=== PATIENT | female | born 1970 | race Caucasian/White ===

== ENCOUNTER 2017-04-01 03:37 | Emergency (ER) | payer BC ==
[2017-04-01] MEDS ORDERED: Ketorolac 60 MG/2 ML SDV IM ONE (03:56)
--- NOTE | 2017-04-01 04:02 | EDM.PDOC ---
ED HPI GENERAL MEDICAL PROBLEM - General Chief Complaint: Upper Extremity Injury/Pain Stated Complaint: RIGHT SHOULDER PAIN Time Seen by Provider: 04/01/17 03:48 - History of Present Illness INITIAL COMMENTS - FREE TEXT/NARRATIVE: HISTORY AND PHYSICAL: History of present illness: The patient is a 46-year-old female who presents with gradual onset of right shoulder pain that started like a muscle in her deltoid area was sore like she had gotten an immunization this discomfort started yesterday and gradually increased through the day into the evening. She has had no trauma to the area and is right-hand dominant. She has no neurosensory changes in her hand initially but as she has not been moving it very much due to the pain she is having more tingling. She has no distal humerus elbow forearm wrist or hand bony pain and has no bony shoulder pain either. She says that the pain is mostly in the muscle and she feels like she cannot move it normally. She has no head neck or back pain no chest pain or shortness of breath no abdominal pain nausea or vomiting and no other systemic complaints. The patient is not taking any medications even [id number] meds for this discomfort. she says that when she will this morning it seemed to be worse if she came for evaluation. Please note that the patient denies that the arm is weak she said that is just painful to move it which is why she can't move it. Patient says that she is perimenopausal and is not . Again please note that the patient says the pain came on gradually and there was no sudden event that triggered it. She says she has never had an injury to her shoulder past either Review of systems: As per history of present illness and below otherwise all systems reviewed and negative. Past medical history: As per history of present illness and as reviewed below otherwise noncontributory. Surgical history: As per history of present illness and as reviewed below otherwise noncontributory. Social history: No reported history of drug or alcohol abuse. Family history: As per history of present illness and as reviewed below otherwise noncontributory. Physical exam: General: Well-developed well-nourished female who is nontoxic and vital signs have been reviewed by me. HEENT: Atraumatic, normocephalic, pupils reactive, negative for conjunctival pallor or scleral icterus, mucous membranes moist, throat clear, neck supple, nontender, trachea midline. there are no midline step-offs tenderness defects of the cervical spine Lungs: Clear to auscultation, breath sounds equal bilaterally, chest nontender. Heart: S1S2, regular rate and rhythm no overt murmurs Abdomen: Soft, nondistended, nontender. NABS Pelvis: Stable nontender. Genitourinary: Deferred. Rectal: Deferred. Extremities: Atraumatic with no bony deformities throughout the extremities including the right upper extremity. There is no gross acromioclavicular step- off noted and on palpation there is no soft tissue swelling or erythema at the shoulder joint and no trigger point tenderness. The deltoid is soft and there is no discrete tenderness when I palpate there. Distally the humerus elbow forearm wrist and hand are intact without tenderness or deformities and all the compartments of the right upper extremity are intact and not swollen. The patient cannot actively or passively completely touch the other shoulder she is able to range of motion close to it but only passively. , the legs are negative for cords or calf pain. Neurovascular unremarkable. Neuro: Awake, alert, oriented. Cranial nerves II through XII unremarkable. Cerebellum unremarkable. Motor and sensory unremarkable throughout. Exam nonfocal. Diagnostics: *Right shoulder XR Therapeutics: Toradol [place], sling After the x-rays were reviewed I did discuss these results with the patient and at bedside. I did perform a crossover adduction test and the patient complained of pain at the AC joint. She insists that the pain is not distally but sits right at the anterior shoulder area. I have discussed with her that even though she did not suffer a discrete injury it appears that his area needs to be evaluated by our orthopedics specialist and she has seen Dr. Sung in the past for her knee. I will give her a sling some [place] and diclofenac for home and have advised her to call the clinic this morning at 8 AM to get an emergent follow-up. Impression: Right shoulder pain , rule out AC joint pain/injury Definitive disposition and diagnosis as appropriate pending reevaluation and review of above. right upper arm (deltoid area) Pain Score (Numeric/FACES): 7 - Related Data Allergies Allergy/AdvReac Type Severity Reaction Status Date / Time No Known Allergies Allergy Verified 04/01/17 03:50 Home Meds: Home Meds . [No Known Home Meds] 04/01/17 [History] Social & Family History - Tobacco Use Smoking Status *Q: Former Smoker - Alcohol Use Days Per Week of Alcohol Use: 1 Number of Drinks Per Day: 1 Total Drinks Per Week: 1 - Recreational Drug Use Recreational Drug Use: No Drug Use in Last 12 Months: No Review of Systems - Review of Systems Review Of Systems: ROS reveals no pertinent complaints other than HPI. ED EXAM, GENERAL - Physical Exam Exam: See Below (See dictation) Course - Vital Signs Last Recorded V/S: Last Vital Signs Temp 36.4 C 04/01/17 03:42 Pulse 72 04/01/17 03:42 Resp 18 04/01/17 03:42 BP 104/59 L 04/01/17 03:42 Pulse Ox 100 04/01/17 03:42 - Orders/Labs/Meds Orders: Active Orders 24 hr Category Date Time Status Shoulder Comp Rt [CR] Stat Exams 04/01/17 03:56 Taken Acetaminophen/HYDROcodone [[place] 325-7.5 MG] Med 04/01/17 04:38 Once 1 tab PO ONETIME ONE DME for Discharge [COMM] Stat Oth 04/01/17 04:38 Ordered Meds: Medications Discontinued Medications Generic Name Dose Route Start Last Admin Trade Name Freq PRN Reason Stop Dose Admin Ketorolac Tromethamine 60 mg 04/01/17 03:56 04/01/17 04:03 Toradol IM 04/01/17 03:57 60 mg ONETIME ONE Administration Departure - Departure Time of Disposition: 04:40 Disposition: Home, Self-Care 01 Condition: Good Clinical Impression: Shoulder pain, right Qualifiers: Chronicity: acute Qualified Code(s): M25.511 - Pain in right shoulder Acromioclavicular pain Qualifiers: Laterality: right Qualified Code(s): M25.511 - Pain in right shoulder - Discharge Information Referrals: Luke Tavares MD [Primary Care Provider] - Forms: ED Department Discharge Additional Instructions: The following information is given to patients seen in the emergency department who are being discharged to home. This information is to outline your options for follow-up care. We provide all patients seen in our emergency department with a follow-up referral. The need for follow-up, as well as the timing and circumstances, are variable depending upon the specifics of your emergency department visit. If you don't have a primary care physician on staff, we will provide you with a referral. We always advise you to contact your personal physician following an emergency department visit to inform them of the circumstance of the visit and for follow-up with them and/or the need for any referrals to a consulting specialist. The emergency department will also refer you to a specialist when appropriate. This referral assures that you have the opportunity for followup care with a specialist. All of these measure are taken in an effort to provide you with optimal care, which includes your followup. Under all circumstances we always encourage you to contact your private physician who remains a resource for coordinating your care. When calling for followup care, please make the office aware that this follow-up is from your recent emergency room visit. If for any reason you are refused follow-up, please contact the [facility] emergency department at and ask to speak to the emergency department charge nurse. [facility]--[place] [address] Please call the orthopedics clinic first thing this morning at 8 AM to schedule an expedited ER follow-up as we discussed. Use ice on the joint area for inflammation and take medications as prescribed to the [facility], diclofenac and [place]. Wear sling to rest the shoulder area of please range of motion the distal arm at the elbow wrist and hand. Return to ER as needed and as discussed. - My Orders Last 24 Hours: My Active Orders 04/01/17 03:56 Shoulder Comp Rt [CR] Stat 04/01/17 04:38 Acetaminophen/HYDROcodone [[place] 325-7.5 MG] 1 tab PO ONETIME ONE DME for Discharge [COMM] Stat - Assessment/Plan Last 24 Hours: My Active Orders 04/01/17 03:56 Shoulder Comp Rt [CR] Stat 04/01/17 04:38 Acetaminophen/HYDROcodone [[place] 325-7.5 MG] 1 tab PO ONETIME ONE DME for Discharge [COMM] Stat
[2017-04-01] MEDS ORDERED: Acetaminophen/HYDROcodone 325-7.5 MG Tab PO ONE (04:38)
--- NOTE | 2017-04-01 10:11 | CR ---
EXAM DATE: 04/01/17 PATIENT'S AGE: 46 Patient: DARRYL CERVANTES Facility: [place], [place] Site . Site : 1970 Study: XRay Shoulder Right [id number]/13/2018 4:26:31 AM Ordering Physician: Leroy Carbajal Final Report: INDICATION: Right shoulder pain TECHNIQUE: Shoulder radiograph 3 views right COMPARISON: None FINDINGS: Bones: No acute fractures or aggressive bone lesions are identified. Joints: The glenohumeral is unremarkable. The acromioclavicular joint is unremarkable. Soft tissues: Unremarkable. The visualized hemithorax is unremarkable in appearance. No radiopaque foreign bodies are seen. IMPRESSION: 1. No acute osseous injuries or abnormalities are noted. Dictated by: José Miguel Solis MD @ 04/01/2017 04:28:01 (Electronic Signature) Report Signed by Proxy. DEBORA
== END 2017-04-01 04:55 | disposition home or self-care (01) ==
LOC: MW.ED 03:37
DX: M25.511 Pain in right shoulder (principal); Z87.891 Personal history of nicotine dependence
CPT/HCPCS: 73030; 96372; 99283; A4566; A9270; J1885

== ENCOUNTER 2017-07-22 12:33 | Emergency (ER) | payer BC ==
[2017-07-22] MEDS ORDERED: Ketorolac 60 MG/2 ML SDV IM ONE (13:17)
--- NOTE | 2017-07-22 13:25 | EDM.PDOC ---
ED HPI GENERAL MEDICAL PROBLEM - General Chief Complaint: Lower Extremity Injury/Pain Stated Complaint: LOW BACK/HIP/LEG PAIN Time Seen by Provider: 07/22/17 13:05 - History of Present Illness INITIAL COMMENTS - FREE TEXT/NARRATIVE: HISTORY AND PHYSICAL: History of present illness: Patient is a 46-year-old white female presents with concern of one week of low back and left buttock pain with radiation down her left leg she saw a chiropractor 2 with no significant improvement she denies trauma denies any weaknesses been no incontinence or retention bowel or bladder and no other concern she denies any history of cancer chronic medical problems Review of systems: As per history of present illness and below otherwise all systems reviewed and negative. Past medical history: As per history of present illness and as reviewed below otherwise noncontributory. Surgical history: As per history of present illness and as reviewed below otherwise noncontributory. Social history: No reported history of drug or alcohol abuse. Family history: As per history of present illness and as reviewed below otherwise noncontributory. Physical exam: HEENT: Atraumatic, normocephalic, pupils reactive, negative for conjunctival pallor or scleral icterus, mucous membranes moist, throat clear, neck supple, nontender, trachea midline. Lungs: Clear to auscultation, breath sounds equal bilaterally, chest nontender. Heart: S1S2, regular, negative for clicks, rubs, or JVD. Abdomen: Soft, nondistended, nontender. Negative for masses or hepatosplenomegaly. Negative for costovertebral tenderness. Pelvis: Stable nontender. Genitourinary: Deferred. Rectal: Deferred. Extremities: Atraumatic, negative for cords or calf pain. Neurovascular unremarkable. Neuro: Awake, alert, oriented. Cranial nerves II through XII unremarkable. Cerebellum unremarkable. Motor and sensory unremarkable throughout. Exam nonfocal. Back: Patient has no vertebral body point tenderness she has tenderness over left sciatic notch she is able to stand on her toes back on her heels motor sensory and deep tendon reflexes are normal Diagnostics: [place] x-ray lumbar spine/pelvis Therapeutics: Toradol 60 mg IM hydrocodone 5 mg by mouth Impression: #1 back pain #2 sciatic Definitive disposition and diagnosis as appropriate pending reevaluation and review of above. right hip Pain Score (Numeric/FACES): 9 - Related Data Allergies Allergy/AdvReac Type Severity Reaction Status Date / Time No Known Allergies Allergy Verified 07/22/17 12:43 Home Meds: Home Meds . 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 ED EXAM, GENERAL - Physical Exam Exam: See Below (See dictation) Course - Vital Signs Last Recorded V/S: Last Vital Signs Temp 36.8 C 07/22/17 12:43 Pulse 82 07/22/17 12:43 Resp 18 07/22/17 12:43 BP 141/88 H 07/22/17 12:43 Pulse Ox 100 07/22/17 12:43 - Orders/Labs/Meds Orders: Active Orders 24 hr Category Date Time Status HCG QUALITATIVE,URINE [URCHEM] Stat Lab 07/22/17 13:30 Ordered UA W/MICROSCOPIC [URIN] Stat Lab 07/22/17 13:30 Ordered Labs: Laboratory Tests 07/22/17 07/22/17 Range/Units 13:30 13:30 Urine Color YELLOW Urine Appearance CLEAR Urine pH 6.5 (5.0-8.0) Ur Specific [place] 1.020 (1.001-1.035) Urine Protein NEGATIVE (NEGATIVE) mg/dL Urine Glucose (UA) NEGATIVE (NEGATIVE) mg/dL Urine Ketones 40 H (NEGATIVE) mg/dL Urine Occult Blood NEGATIVE (NEGATIVE) Urine Nitrite NEGATIVE (NEGATIVE) Urine Bilirubin SMALL H (NEGATIVE) Urine Ictotest NEGATIVE Urine Urobilinogen 1.0 (<2.0) EU/dL Ur Leukocyte Esterase NEGATIVE (NEGATIVE) Urine RBC 0-1 (0-2/HPF) Urine WBC 0-1 (0-5/HPF) Ur Epithelial Cells MANY (NONE-FEW) Urine Bacteria RARE (NEGATIVE) Urine HCG, Qual NEGATIVE (NEGATIVE) Meds: Medications Discontinued Medications Generic Name Dose Route Start Last Admin Trade Name Freq PRN Reason Stop Dose Admin Hydrocodone Bitart/Acetaminophen 1 tab 07/22/17 13:45 07/22/17 13:50 [place] 325-5 Mg PO 07/22/17 13:46 1 tab ONETIME ONE Administration Ketorolac Tromethamine 60 mg 07/22/17 13:17 07/22/17 13:30 Toradol IM 07/22/17 13:18 60 mg ONETIME ONE Administration Departure - Departure Time of Disposition: 14:23 Disposition: Home, Self-Care 01 Condition: Good Clinical Impression: Back pain, Sciatica - Discharge Information Referrals: Luke Tavares MD [Primary Care Provider] - Forms: ED Department Discharge Additional Instructions: The following information is given to patients seen in the emergency department who are being discharged to home. This information is to outline your options for follow-up care. We provide all patients seen in our emergency department with a follow-up referral. The need for follow-up, as well as the timing and circumstances, are variable depending upon the specifics of your emergency department visit. If you don't have a primary care physician on staff, we will provide you with a referral. We always advise you to contact your personal physician following an emergency department visit to inform them of the circumstance of the visit and for follow-up with them and/or the need for any referrals to a consulting specialist. The emergency department will also refer you to a specialist when appropriate. This referral assures that you have the opportunity for followup care with a specialist. All of these measure are taken in an effort to provide you with optimal care, which includes your followup. Under all circumstances we always encourage you to contact your private physician who remains a resource for coordinating your care. When calling for followup care, please make the office aware that this follow-up is from your recent emergency room visit. If for any reason you are refused follow-up, please contact the [facility] emergency department at and asked to speak to the emergency department charge nurse. Hydrocodone Medrol as prescribed follow-up primary medical doctor call to schedule appointment return as needed as discussed - My Orders Last 24 Hours: My Active Orders 07/22/17 13:30 HCG QUALITATIVE,URINE [URCHEM] Stat UA W/MICROSCOPIC [URIN] Stat - Assessment/Plan Last 24 Hours: My Active Orders 07/22/17 13:30 HCG QUALITATIVE,URINE [URCHEM] Stat UA W/MICROSCOPIC [URIN] Stat
[2017-07-22] MEDS ORDERED: Acetaminophen/HYDROcodone 325-5 MG Tab PO ONE (13:45)
--- NOTE | 2017-07-22 14:09 | CR ---
AP pelvis Clinical history: Pain Comparison: None Findings: There is an IUD in situ. The greater and lesser pelvic rings are intact and hip joints are symmetric. SI joints are unremarkable. There is a moderate amount of stool in the rectosigmoid colon. Impression: IUD in situ. No bony abnormalities.
--- NOTE | 2017-07-22 14:11 | CR ---
Three-view lumbar spine Clinical history: Back pain Comparison: None. Findings: Vertebral bodies are of normal stature. Pedicles are intact. There is degenerative disc dis ease with loss of stature at L3-4 L4-5 and L5-S1 levels. There is no spondylolysis or spondylolisthes is. Impression: Lower lumbar spine degenerative arthropathy without acute findings. Incidental note is ma de of an IUD in situ
== END 2017-07-22 14:45 | disposition home or self-care (01) ==
LOC: MW.ED 12:33
DX: M54.42 Lumbago with sciatica, left side (principal)
CPT/HCPCS: 72100; 72170; 81001; 81025; 96372; 99283; A9270; J1885

== ENCOUNTER 2017-08-12 12:43 | Day surgery (SDC) | payer BC ==
[~2017-08-12 12:43] MED LIST: Betamethasone Acetate/Betamethasone Sod Phosphate 30 MG/5 ML MDV ONE; Iopamidol 408 MG/ML 50 ML SDV ONE; Lidocaine 2% 5 ML SDV ONE; Ropivacaine 0.5% 5 MG/ML 30 ML SDV ONE
--- NOTE | 2017-08-12 17:31 | OR ---
SURGEON: Dasha Douglass D.O. DATE OF PROCEDURE: 08/12/2017 OR STAFF PRESENT: 1. Clarita Geiger RN. 2. Clarita Barros RN. 3. RT Domenic. WOUND CLASSIFICATION: I. PREOPERATIVE DIAGNOSES: 1. Lumbar degenerative disk disease. 2. L4-L5 and L5-S1 herniated disks. 3. Lumbar radiculopathy. POSTOPERATIVE DIAGNOSES: 1. Lumbar degenerative disk disease. 2. L4-L5 and L5-S1 herniated disks. 3. Lumbar radiculopathy. PROCEDURES PERFORMED: 1. Caudal epidural steroid injection. 2. Fluoroscopic guidance for needle placement. 3. Local with oral valium for sedation. SCREENING QUESTIONS: The patient answered "no" to all of the following questions: 1. Are you allergic to latex? 2. Do you have a bleeding disorder? 3. Do you have any current local or systemic infections? 4. Are you taking any anti-inflammatories or blood thinners? 5. Do you have any joint replacements, heart valve replacements, or a pacemaker? DESCRIPTION OF PROCEDURE: The patient had the procedure thoroughly explained including all possible risks, benefits and alternatives. Consent was signed in my clinic indicating understanding and willingness to proceed. The patient presented to [facility] and was escorted to the dressing room to disrobe and change into a hospital gown. Preoperative vital signs were taken and stable. The patient reported that Valium was taken prior to the procedure. The patient was brought back to the procedure room and placed in the prone position on the procedure room table. A pillow was placed under the hips in order to flatten the lumbar lordosis. The back was prepped with ChloraPrep and sterilely draped. All personnel in the operating room were dressed in appropriate attire including surgical scrubs, head and shoe covers. This was to ensure sterility while in the treatment room. During the time fluoroscopy was in use, all personnel in the operating room wore lead castro with thyroid collars. Sterile technique was used throughout the procedure. The patient was awake and conversant throughout the procedure. There was no evidence of infection at the site of needle insertion. Skeletal landmarks were identified under fluoroscopy for the lumbar epidural. Skin was anesthetized with 2% lidocaine with a sterile 27-gauge 1.5 inch needle. Then, a 20-gauge Tuohy epidural needle was placed in the epidural space with loss of resistance technique under fluoroscopic guidance. No heme, cerebrospinal fluid, or paresthesias were noted. Isovue-200 contrast dye was injected in 0.2 cubic centimeter increments and seen to outline the epidural space in both AP and lateral views. There was no intravascular flow pattern observed under live fluoroscopy. Then, 12 milligrams of Celestone was slowly injected after negative aspiration. The patient tolerated the procedure well. Vital signs were stable during and after the procedure. The staff escorted the patient to the recovery area and the patient was released in stable condition after a brief stay in the recovery room monitored by the nurse. The patient was given both oral and written discharge and follow up instructions with recommendation to follow up given for 2-3 weeks. The patient voiced understanding including understanding of those signs and symptoms that would require emergency care. The patient knows how to contact the office if there are any additional problems or questions in the meantime. PREOPERATIVE PAIN: 7/10 POSTOPERATIVE PAIN: 02/26 FOLLOWUP: Follow up in the Pain Clinic in 3 weeks. PREET / AG /[id number]
== END 2017-08-12 15:05 | disposition home or self-care (01) ==
LOC: MW.SDS 12:43
PROVIDERS: ATTEND Anesthesiology
DX: M51.16 Intervertebral disc disorders with radiculopathy, lumbar region (principal); M51.17 Intervertebral disc disorders with radiculopathy, lumbosacral region; E66.9 Obesity, unspecified; F41.8 Other specified anxiety disorders; Z87.891 Personal history of nicotine dependence
CPT/HCPCS: 62323; J0702; J2795; Q9966

== ENCOUNTER 2018-02-24 10:41 | Day surgery (SDC) | payer BC ==
[2018-02-24] MEDS ORDERED: Lidocaine 1% 0 ML ONE (12:03)
[2018-02-24] MEDS ORDERED: Iopamidol 408 MG/ML 50 ML SDV ONE (12:04)
[2018-02-24] MEDS ORDERED: Ropivacaine 0.5% 5 MG/ML 30 ML SDV ONE (12:04)
[2018-02-24] MEDS ORDERED: Betamethasone Acetate/Betamethasone Sod Phosphate 30 MG/5 ML MDV ONE (12:04)
[2018-02-24] MEDS ORDERED: Lidocaine 2% 5 ML SDV ONE (12:04)
--- NOTE | 2018-02-24 21:20 | OR ---
SURGEON: Dasha Douglass D.O. DATE OF PROCEDURE: 02/24/2018 OR STAFF PRESENT: 1. Dandre Chen RN. 2. Anibal Montanez RN. 3. Mellissa Edmonds RN. 4. RT Ofelia. WOUND CLASS: I. PREOPERATIVE DIAGNOSES: 1. Lumbar degenerative disk disease, L3-L4, L4-L5, L5-S1. 2. Chronic low back pain. 3. Lumbar radiculopathy. 4. Lumbar facet syndrome. POSTOPERATIVE DIAGNOSES: 1. Lumbar degenerative disk disease, L3-L4, L4-L5, L5-S1. 2. Chronic low back pain. 3. Lumbar radiculopathy. 4. Lumbar facet syndrome. PROCEDURE PERFORMED: 1. Caudal epidural steroid injection. 2. Fluoroscopic guidance for needle placement. 3. Local with oral valium for sedation. SCREENING QUESTIONS: The patient answered "no" to all of the following questions: 1. Are you allergic to latex? 2. Do you have a bleeding disorder? 3. Do you have any current local or systemic infections? 4. Are you taking any anti-inflammatories or blood thinners? 5. Do you have any joint replacements, heart valve replacements, or a pacemaker? DESCRIPTION OF PROCEDURE: The patient had the procedure thoroughly explained including all possible risks, benefits and alternatives. Consent was signed in my clinic indicating understanding and willingness to proceed. The patient presented to [facility] and was escorted to the dressing room to disrobe and change into a hospital gown. Preoperative vital signs were taken and stable. The patient reported that Valium was taken prior to the procedure. The patient was brought back to the procedure room and placed in the prone position on the procedure room table. A pillow was placed under the hips in order to flatten the lumbar lordosis. The back was prepped with ChloraPrep and sterilely draped. All personnel in the operating room were dressed in appropriate attire including surgical scrubs, head and shoe covers. This was to ensure sterility while in the treatment room. During the time fluoroscopy was in use, all personnel in the operating room wore lead castro with thyroid collars. Sterile technique was used throughout the procedure. The patient was awake and conversant throughout the procedure. There was no evidence of infection at the site of needle insertion. Skeletal landmarks were identified under fluoroscopy for the caudal epidural. Skin was anesthetized with 2% lidocaine with a sterile 27-gauge 1.5 inch needle. Then a 20-gauge Tuohy epidural needle was placed in the epidural space with loss of resistance technique under fluoroscopic guidance. No heme, cerebrospinal fluid, or paresthesias were noted. Isovue-200 contrast dye was injected in 0.2 cubic centimeter increments and seen to outline the epidural space in both AP and lateral views. There was no intravascular flow pattern observed under live fluoroscopy. Then 12 milligrams of Celestone was slowly injected after negative aspiration. The patient tolerated the procedure well. Vital signs were stable during and after the procedure. The staff escorted the patient to the recovery area and the patient was released in stable condition after a brief stay in the recovery room monitored by the nurse. The patient was given both oral and written discharge and follow up instructions with recommendation to follow up given for 2-3 weeks. The patient voiced understanding including understanding of those signs and symptoms that would require emergency care. The patient knows how to contact the office if there are any additional problems or questions in the meantime. PREOPERATIVE PAIN: 7/10. POSTOPERATIVE PAIN: 0/10. FOLLOWUP: Follow up in Pain Clinic in 3 weeks. PREET / AG /[id number] DEBORA
== END 2018-02-24 13:48 | disposition home or self-care (01) ==
LOC: MW.SDS 10:41
PROVIDERS: ATTEND Anesthesiology
DX: G89.29 Other chronic pain (principal); M51.17 Intervertebral disc disorders with radiculopathy, lumbosacral region; M53.86 Other specified dorsopathies, lumbar region; M47.26 Other spondylosis with radiculopathy, lumbar region; M79.18 Myalgia, other site; M48.061 Spinal stenosis, lumbar region without neurogenic claudication; E66.9 Obesity, unspecified; Z87.891 Personal history of nicotine dependence
CPT/HCPCS: 62323; 81025; J0702; J2795; Q9966